=== PATIENT | female | born 1990 | race Caucasian/White ===

== ENCOUNTER 2021-05-08 23:45 | Emergency (ER) | payer OTHER ==
[2021-05-09 00:14] VITALS: BMI 24.7
[2021-05-09] MEDS ORDERED: ACETAMINOPHEN 325 MG TABLET (FP) PO ONE (00:30)
[2021-05-09] MEDS ORDERED: ACETAMINOPHEN 500 MG TABLET (FP) PO ONE (00:30)
[2021-05-09] MEDS ORDERED: ACETAMINOPHEN 325 MG TABLET (FP) ONE (00:44)
[2021-05-09 08:29] VITALS: BP 108/70; PULSE 72; TEMP 98.2
== END 2021-05-09 08:49 | disposition home or self-care (01) ==
LOC: JER 23:45
PROC: 2W3QX1Z Immobilization of Right Lower Leg using Splint (ICD-10-PCS; principal; 2021-05-08)
DX: S82.831A Other fracture of upper and lower end of right fibula, initial encounter for closed fracture (principal); W19.XXXA Unspecified fall, initial encounter
CPT/HCPCS: 73562-TC-LT-FY; 73562-TC-RT-FY; 73610-TC-LT-FY; 73610-TC-RT-FY; 73630-TC-LT; 73630-TC-RT-FY; 99284-25